=== PATIENT | female | born 1955 | race Caucasian/White ===

== ENCOUNTER → 2018-08-31 10:43 | Outpatient (CLI) | payer OTHER, SELFPAY ==
--- NOTE | 2018-08-31 | DI.RAD.S_ITS ---
PROCEDURE: XR SHOULDER RT MIN 2V INDICATIONS: PAIN IN RIGHT SHOULDER TECHNIQUE: 3 views of the shoulder were acquired. COMPARISON: None. FINDINGS: Bones: No fractures or dislocations. Degenerative changes of the right acromioclavicular joint. No suspicious bony lesions. Visualized ribs appear intact. Soft tissues: No suspicious soft tissue calcifications. IMPRESSION: Right shoulder without acute osseous abnormalities. Right acromioclavicular joint osteoarthrosis. Dictated by: Jc Mchugh M.D. on 08/31/2018 at 14:48 Approved by: Jc Mchugh M.D. on 08/31/2018 at 14:50
== END ==
PROVIDERS: Family Provider Physician Assistant; PCP Physician Assistant; Visit Provider Physician Assistant
DX: M25.511 Pain in right shoulder (principal); M19.011 Primary osteoarthritis, right shoulder
CPT/HCPCS: 73030

== ENCOUNTER → 2018-09-07 09:35 | Outpatient (CLI) | payer OTHER, SELFPAY | PROVIDERS: Family Provider Physician Assistant; PCP Physician Assistant; Visit Provider Physician Assistant | DX: M85.851 Other specified disorders of bone density and structure, right thigh (principal); Z78.0 Asymptomatic menopausal state; E07.9 Disorder of thyroid, unspecified; F17.200 Nicotine dependence, unspecified, uncomplicated; Z90.722 Acquired absence of ovaries, bilateral | CPT/HCPCS: 77080 ==

== ENCOUNTER 2019-05-22 11:28 | Emergency (ER) | payer OTHER, SELFPAY ==
[2019-05-22 11:38] VITALS: PULSE 70
[2019-05-22 11:40] VITALS: BP 142/77; PULSE 83; RESP 17; TEMP 37.3; O2SAT 99
--- NOTE | 2019-05-22 11:51 | ED_ITS ---
HPI - Extremity Injury (Upper) <MEMO Rosario - Last Filed: 05/22/19 19:02> General Chief Complaint: Extremity Injury, Upper Stated Complaint: left shoulder constant pain since 05/11 fall Time Seen by Provider: 05/22/19 11:31 Source: patient Mode of arrival: Ambulatory Limitations: no limitations History of Present Illness HPI narrative: This is a 63-year-old female, smoker, who presents to ED with left anterior shoulder pain radiating to left elbow and at times down to her wrist. She had taken a fall from a stool onto concrete floor on 05/11/2019 and landed on anterior aspect of left shoulder. She denies losing consciousness or on anticoagulant. She just lost her and was in process of taking care of funerals and etc. since the service is over patient is here for an evaluation with ongoing pain. Patient also reports improved nasal discomfort but denies difficulty breathing and has intact smell. Patient denies weakness, tingling on left hand. Patient reports pain increases with any movement such as forward elevation, abduction, adduction, internal or external rotation of affected arm. Right dominant hand. Patient reports had taken her 's oxycodone a couple of times for severe pain. No previous injury to left shoulder. Related Data Home Medications Medication Instructions Recorded Confirmed cholecalciferol (vitamin D3) 2,000 2,000 unit PO DAILY 11/12/18 05/22/19 unit capsule levothyroxine 125 mcg capsule 125 mcg PO DAILY 11/12/18 05/22/19 modafinil 200 mg tablet 200 mg PO DAILY 11/12/18 05/22/19 acetaminophen 1 dose PO PRN PRN 05/22/19 05/22/19 ibuprofen 1 dose PO PRN PRN 05/22/19 05/22/19 Allergies Allergy/AdvReac Type Severity Reaction Status Date / Time vitamin E (d-alpha Allergy Facial Verified 05/22/19 11:39 tocopherol) skin breakout Oral Steroids AdvReac Depression Uncoded 05/22/19 11:39 Review of Systems <MEMO Rosario - Last Filed: 05/22/19 19:02> Review of Systems Narrative: General: Denies fever, chills, fatigue, malaise, sweats. HEENT: Denies sinus pain, ear pain, sore throat, difficulty swallowing, dizziness. Respiratory: Denies dyspnea, cough, wheezing, hemoptysis, sputum. Cardiovascular: Denies chest pain, palpitations, orthopnea, edema. Gastrointestinal: Denies nausea, vomiting, abdominal pain, diarrhea, constipation, melena. : Denies dysuria, frequency, incontinence, hematuria, urinary retention. Musculoskeletal: See HPI Skin: Denies rash, skin lesions, or other. Neurologic: Denies weakness, headache, numbness, change in speech, confusion, seizures, incoordination. Psychiatric: See HPI 12-point review of systems is negative except for those stated above. Patient History <MEMO Rosario - Last Filed: 05/22/19 19:02> Surgical History H/O bilateral oophorectomy (Acute) Social History Smoking Status: Current every day smoker Social History Smoking Status: Current every day smoker alcohol intake frequency: 0-2 drinks per day Substance Use Type: does not use Exam <MEMO Rosario - Last Filed: 05/22/19 19:02> Narrative Exam Narrative: General appearance: well developed, well nourished, in no acute distress. Head: normocephalic, atraumatic, no scalp lesions, non-tender. Eye: pupil equal, round. EOMI. Nose: nares patent without active bleeding. Oral: mucosa moist. Neck/Thyroid: neck supple, full range of motion, no visible masses. Skin: no suspicious rashes, lesions over visible areas. Warm and dry. Heart: no clubbing, no cyanosis, no edema. Lungs: Breathing even and unlabored. No stridor. No accessory muscles used. Chest: normal shape and expansion. Abdomen: non-obese, non-distended. Neurologic: alert and oriented. 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 Psych: In tears while talking about her and memory of service. Initial Vital Signs Initial Vital Signs: Vital Signs Pulse Rate 70 05/22/19 11:38 Extrem General: normal to inspection Left upper extremity: shoulder/upper arm Details: inspection abnormal, axillary nerve sensory function normal and abnormal ROM Details: pain with active ROM, pain with passive ROM and with range as follows (less than 90 degree forward flexion, abduction; internal rotation and external rotation); no swelling, no ecchymosis, no deformity and no unsual warmth and hand Details: neurosensory e xam normal, tendon exam normal and vascular exam Details: radial pulse present and normal capillary refill <Fiorella Roland MD - Last Filed: 05/23/19 07:52> Initial Vital Signs Initial Vital Signs: Vital Signs Pulse Rate 70 05/22/19 11:38 Course <MEMO Rosario - Last Filed: 05/22/19 19:02> Orders Ordered: ED Orders 05/22/19 11:49 XR shoulder LT min 2V Stat Vital Signs Vital signs: Vital Signs - 8 hr 05/22/19 11:38 05/22/19 11:40 Temperature 99.1 F Pulse Rate 83 Pulse Rate [Left Radial] 70 Respiratory Rate 17 Blood Pressure [Right Arm] 142/77 H Pulse Oximetry 99 <Fiorella Roland MD - Last Filed: 05/23/19 07:52> Orders Ordered: ED Orders 05/22/19 11:49 XR shoulder LT min 2V Stat Vital Signs Vital signs: Vital Signs - 8 hr 05/22/19 11:38 05/22/19 11:40 Temperature 99.1 F Pulse Rate 83 Pulse Rate [Left Radial] 70 Respiratory Rate 17 Blood Pressure [Right Arm] 142/77 H Pulse Oximetry 99 MDM - Extremity Injury (Upper) <MEMO Rosario - Last Filed: 05/22/19 19:02> Differential Diagnosis Differential diagnosis: Likely other (strain of shoulder, shoulder pain) Medical Records Attestation: I reviewed the patient's medical records. Imaging Data XR-Shoulder L: Radiologist's impression: [address] [address] XRay Report Signed Patient: Yanique Olivares LMR#: [id number] : 8Acct:[id number] Age/Sex: 63 / FDate of Service: 05/22/19 Loc: ED Accession Number: [id number] Procedure: XR shoulder LT min 2V Ordering Provider: Davila-Oras,Ayaz [employer] TECHNICIAN PROCEDURE: XR SHOULDER LT MIN 2V INDICATIONS: L shoulder pain, fell on anterior shoulder 11 days ago TECHNIQUE: 3 views of the shoulder were acquired. COMPARISON: None. FINDINGS: Bones: No fractures or dislocations. No suspicious bony lesions. Visualized ribs appear intact. Mild acromioclavicular joint osteoarthritis. Soft tissues: No suspicious soft tissue calcifications. IMPRESSION: No fracture. No acute osseous lesion. If symptoms and/or clinical suspicion for pathology persists, further assessment with repeat radiographs (7-10 days) or advanced imaging (e.g. CT, MRI or bone scan) may be helpful. Dictated by: Stacia Tobin MD, PhD on 05/22/2019 at 11:58 Approved by: Stacia Tobin MD, PhD on 05/22/2019 at 12:00 [facility] Narrative Medical decision making narrative: This patient is 63-year-old female who presents to ED with left anterior shoulder pain radiating down to elbow and occasionally to the wrist after she taken a fall on affected shoulder 10 days ago. There is no neurological deficit on left hand with good radial pulse. Pain increases with any active range of motion on right arm. X-ray does not show any acute findings such as fracture or dislocation. We discussed about physical therapy and further imaging test if pain persists and patient agrees with treatment plan. Return precautions were discussed with the patient. Patient advised to take jgpy-pau-lbodwwn Tylenol and or Motrin for discomfort and oxycodone that she has at home for severe pain at nights. Discharge Plan Departure Patient Disposition: Home Clinical Impression: Acute shoulder pain Qualifiers: Laterality: left Qualified Code(s): M25.512 - Pain in left shoulder Discharge Date/Time: 05/22/19 13:27 Instructions: DI for Shoulder Pain Activity Restrictions/Additional Instructions: You have been diagnosed with [left shoulder pain. X-ray test today does not show any acute findings such as fracture or dislocation.]. What to do: *Take your medications as directed. Please take ixir-guj-taeaqmg Tylenol up to 4000 mg in 24 hour. You can take extra-strength Tylenol 2 tabs 4 times a day. Also you can add ibuprofen 400 mg to 600 mg 3 times a day with food. *Follow up with your primary care provider in 2-3 days, call for an appointment. Let them know you were seen in the ED and that we asked you to be seen in follow up. You may need a referral to physical therapy and advanced imaging tests if the pain persists. *Return to ED if you have any new, worsening, or concerning symptoms, such as [tingling, weakness, numbness, worsening pain, chest pain, breathing difficulty, unable to tolerate fluids, or any acute concerns]. Prescriptions: No Action acetaminophen 1 dose PO PRN PRN (Reason: shoulder pain) RF: 0 ibuprofen 1 dose PO PRN PRN (Reason: shoulder pain) RF: 0 modafinil 200 mg tablet 200 mg PO DAILY RF: 0 cholecalciferol (vitamin D3) 2,000 unit capsule 2,000 unit PO DAILY RF: 0 levothyroxine 125 mcg capsule 125 mcg PO DAILY RF: 0 Referrals: Emmy Carlos PA-C [Primary Care Provider] -
== END 2019-05-22 13:27 | disposition home or self-care (01) ==
PROVIDERS: Emergency Provider Nurse Practitioner Family; Family Provider Physician Assistant; PCP Physician Assistant
DX: M25.512 Pain in left shoulder (principal); W19.XXXA Unspecified fall, initial encounter
CPT/HCPCS: 73030; 99282; 99283

== ENCOUNTER 2019-05-24 15:17 | Emergency (ER) | payer OTHER, SELFPAY ==
[2019-05-24 15:29] VITALS: BP 163/78; PULSE 87; RESP 14; TEMP 37.2; O2SAT 97; BMI 26.6
--- NOTE | 2019-05-24 15:51 | ED.UPPEXIN ---
HPI - Extremity Injury (Upper) <MEMO Rosario - Last Filed: 05/24/19 23:07> General Chief Complaint: Extremity Injury, Upper Stated Complaint: odd sensations and tingling in left hand/ forearm Time Seen by Provider: 05/24/19 15:32 Source: patient Mode of arrival: Ambulatory Limitations: no limitations History of Present Illness HPI narrative: This is a 63-year-old female, smoker, who presents to ED with increasing hot and cold sensation on left arm. She was evaluated in ED 2 days ago with left shoulder pain after she sustained a fall at least 10 days prior visiting ER. Patient reports pain was manageable with hhyw-jtw-esybqff Tylenol and Motrin and occasional oxycodone. Reports has not followed up with her primary care physician. Patient contacted [facility] to make a follow-up appointment and was advised to re-evaluated in ED patient has not been sensation problems so she presents to ED today. Reports is able to move her fingers without difficulty. Related Data Home Medications Medication Instructions Recorded Confirmed cholecalciferol (vitamin D3) 2,000 2,000 unit PO DAILY 11/12/18 05/22/19 unit capsule levothyroxine 125 mcg capsule 125 mcg PO DAILY 11/12/18 05/22/19 modafinil 200 mg tablet 200 mg PO DAILY 11/12/18 05/22/19 acetaminophen 1 dose PO PRN PRN 05/22/19 05/22/19 ibuprofen 1 dose PO PRN PRN 05/22/19 05/22/19 Allergies Allergy/AdvReac Type Severity Reaction Status Date / Time vitamin E (d-alpha Allergy Facial Verified 05/24/19 15:29 tocopherol) skin breakout Oral Steroids AdvReac Depression Uncoded 05/22/19 11:39 Review of Systems <MEMO Rosario - Last Filed: 05/24/19 23:07> Review of Systems ROS Unobtainable: All systems reviewed & are unremarkable except as noted in HPI and below Patient History <MEMO Rosario - Last Filed: 05/24/19 23:07> Social History Smoking Status: Current every day smoker alcohol intake frequency: holidays/special occasions only Substance Use Type: does not use Exam <SKYLER RosarioP - Last Filed: 05/24/19 23:07> Narrative Exam Narrative: General appearance: well developed, well nourished, in no acute distress. Head: normocephalic, atraumatic, no scalp lesions, non-tender. Eye: pupil equal, round. EOMI. Nose: nares patent. Oral: mucosa moist. Neck/Thyroid: neck supple, full range of motion, no visible masses. Skin: no suspicious rashes, lesions over visible areas. Warm and dry. Heart: no clubbing, no cyanosis, no edema. Lungs: Breathing even and unlabored. No stridor. No accessory muscles used. Chest: normal shape and expansion. Abdomen: non-obese, non-distended. Neurologic: alert and oriented. 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 Psych: good eye contact, normal affect. Initial Vital Signs Initial Vital Signs: Vital Signs Temperature 98.9 F 05/24/19 15:29 Pulse Rate 87 05/24/19 15:29 Respiratory Rate 14 05/24/19 15:29 Blood Pressure 163/78 H 05/24/19 15:29 Pulse Oximetry 97 05/24/19 15:29 Extrem Left upper extremity: shoulder/upper arm Details: inspection abnormal, tenderness, axillary nerve sensory function normal and abnormal ROM Details: pain with passive ROM and with range as follows (Able to forward flex and abduct greater than 90 degree which has improved from previous visit 2 days ago.); no swelling, no crepitus, no deformity and no unsual warmth, elbow/forearm Details: normal to inspection and distal pulses intact; no tenderness, no swelling and ROM abnormal and hand Details: normal to inspection, normal capillary refill, neuromotor exam normal Details: wrist extension normal, thumb opposition normal, thumb IP flexion normal, thumb ADduction normal and fingers 2-5 ABduction normal, neurosensory exam normal (light touch sensation intact. Reports hot/icy cold sensation on ulnar and radial aspect of L arm from upper arm down to lower arm/fingers.), tendon exam normal, vascular exam Details: radial pulse present and normal capillary refill; not cool and no cyanosis and normal ROM of fingers <Monie Bautista DO - Last Filed: 05/25/19 08:06> Initial Vital Signs Initial Vital Signs: Vital Signs Temperature 98.9 F 05/24/19 15:29 Pulse Rate 87 05/24/19 15:29 Respiratory Rate 14 05/24/19 15:29 Blood Pressure 163/78 H 05/24/19 15:29 Pulse Oximetry 97 05/24/19 15:29 Course <MEMO Rosario - Last Filed: 05/24/19 23:07> Vital Signs Vital signs: Vital Signs - 8 hr 05/24/19 15:29 Temperature 98.9 F Pulse Rate 87 Respiratory Rate 14 Blood Pressure 163/78 H Pulse Oximetry 97 <Monie Bautista DO - Last Filed: 05/25/19 08:06> Vital Signs Vital signs: Vital Signs - 8 hr 05/24/19 15:29 Temperature 98.9 F Pulse Rate 87 Respiratory Rate 14 Blood Pressure 163/78 H Pulse Oximetry 97 MDM - Extremity Injury (Upper) <MEMO Rosario - Last Filed: 05/24/19 23:07> Differential Diagnosis Differential diagnosis: Likely other (Left shoulder pain) Medical Records Attestation: I reviewed the patient's medical records. [facility] Narrative Medical decision making narrative: This is 63-year-old female return to ED with left arm paresthesia. Patient was seen 2 days ago with left shoulder pain after she sustained a fall about 10 days prior to ED visit. X-ray test was done at that time with no acute findings such as dislocation, fracture. Patient active range of motion has improved since the visit. However, she has icy cold/hot sensation from left upper arm dating down to wrist/fingers on radial and ulna aspect. Bilateral hand/fingers strength are equal and light touch sensations were intact along radial pulses. Patient was able to move all fingers against resistance. The patient was assured her paresthesia is likely due to a shoulder injury and pain. Patient advised to follow up with her primary care physician to get a referral to physical therapist to rehabilitate left arm strength and shoulder mobility. Advised to follow up with [facility] orthopedist if pain and paresthesia persists. Patient verbalized the understanding and agrees with treatment plan at this time. Advised continue with current medication regimen. Discharge Plan Departure Patient Disposition: Home Clinical Impression: Paresthesia and pain of left extremity Discharge Date/Time: 05/24/19 16:01 Instructions: DI for Shoulder Pain Activity Restrictions/Additional Instructions: You have been diagnosed with [left shoulder pain/injury and paresthesia of from a fall. Deferred imaging test at this time. It appears to be you have paresthesia from shoulder injury on left arm. You do have good strength on both hands and arms. As we discussed, you may need physical therapy referral after re-evaluated by your primary care physician]. What to do: *Take your medications as directed. Please continue to take ibic-zwa-fulysvt Tylenol and or Motrin as needed for her discomfort. Motrin is good medications for decreasing inflammation as well since you declined prednisone due to side effects. *Follow up with your primary care provider in 2-3 days, call for an appointment. Let them know you were seen in the ED and that we asked you to be seen in follow up. *Return to ED if you have any new, worsening, or concerning symptoms, such as [worsening symptoms such as pain, weakness, increasing numbness, chest pain, breathing difficulty, or any acute concerns]. Prescriptions: No Action acetaminophen 1 dose PO PRN PRN (Reason: shoulder pain) RF: 0 ibuprofen 1 dose PO PRN PRN (Reason: shoulder pain) RF: 0 modafinil 200 mg tablet 200 mg PO DAILY RF: 0 cholecalciferol (vitamin D3) 2,000 unit capsule 2,000 unit PO DAILY RF: 0 levothyroxine 125 mcg capsule 125 mcg PO DAILY RF: 0 Referrals: [facility] [Provider Group] Emmy Carlos PA-C [Primary Care Provider] -
== END 2019-05-24 16:01 | disposition home or self-care (01) ==
PROVIDERS: Emergency Provider Nurse Practitioner Family; Family Provider Physician Assistant; PCP Physician Assistant
DX: M79.602 Pain in left arm (principal); R20.2 Paresthesia of skin
CPT/HCPCS: 99282

== ENCOUNTER → 2019-06-04 15:57 | Outpatient (ROUT) | payer OTHER, SELFPAY ==
[2019-06-04 16:43] LABS: TSH w/ Reflex to FT4 2.36 uIU/mL (0.47-4.68)
== END ==
PROVIDERS: Family Provider Physician Assistant; PCP Physician Assistant; Visit Provider Physician Assistant
DX: E03.9 Hypothyroidism, unspecified (principal)
CPT/HCPCS: 84443

== ENCOUNTER → 2019-06-10 16:58 | Outpatient (CLI) | payer OTHER, SELFPAY ==
--- NOTE | 2019-06-10 17:01 | DI.MRI.S_ITS ---
PROCEDURE: MR SHOULDER LT WO CON INDICATIONS: PAIN LEFT SHOULDER TECHNIQUE: Noncontrast oblique coronal T2 fast spin echo with fat saturation, oblique sagittal T1 spin echo and T2 fast spin echo with fat saturation, axial T1 spin echo and T2 fast spin echo with fat saturation through the shoulder. COMPARISON: None. FINDINGS: Image quality: Excellent. Rotator cuff: There is tendinosis and moderate grade articular and bursal surface partial thickness tear involving distal supraspinatus and infraspinatus at the insertion humeral head extending to the musculotendinous junction. Distal subscapularis tendinosis is also seen. Sagittal images demonstrate mild to moderate supraspinatus muscle atrophy. Bones and bursae: No bone marrow contusions or fractures. The moderate acromioclavicular joint and glenohumeral joint osteoarthritic changes are seen. Moderate amount of fluid within subacromial subdeltoid bursa and glenohumeral joint is seen, no gross intra-articular loose body. Capsule and soft tissues: In the absence of intra-articular contrast, there is suggestion of focal superior anterior labral tear at 12 to 1:00 position. The glenohumeral ligaments appear intact. The long head of the biceps tendon demonstrates normal location and morphology. The rotator interval appears normal, without fibrosis. The coracohumeral ligament is normal in thickness. IMPRESSION: 1. Tendinosis and moderate grade articular and bursal surface partial thickness tear involving distal supraspinatus and infraspinatus extending to musculotendinous junction. Distal subscapularis tendinosis. Mild to moderate supraspinatus muscle atrophy. 2. Moderate acromioclavicular joint and glenohumeral joint osteoarthritis and small to moderate amount of joint effusion and subacromial subdeltoid bursal fluid. No gross intra-articular loose body. 3. Finding is concerning for focal superior anterior labral tear at 12 to 1:00 position. Dictated by: Nima Laura M.D. on 06/11/2019 at 9:41 Approved by: Nima Laura M.D. on 06/11/2019 at 9:52
== END ==
PROVIDERS: Family Provider Physician Assistant; PCP Physician Assistant; Visit Provider Physician Assistant
DX: M25.512 Pain in left shoulder (principal); M75.112 Incomplete rotator cuff tear or rupture of left shoulder, not specified as traumatic; M19.012 Primary osteoarthritis, left shoulder; M25.412 Effusion, left shoulder; M62.512 Muscle wasting and atrophy, not elsewhere classified, left shoulder
CPT/HCPCS: 73221

== ENCOUNTER → 2019-08-29 15:55 | Outpatient (ROUT) | payer OTHER, SELFPAY ==
[2019-08-29 16:02] LABS: Add Manual Diff / Slide Review NO; Basophils Absolute Auto 100 /uL (0-100); Basophils Percent Auto 0.7 % (0-2); Eosinophils Absolute Auto 200 /uL (0-450); Eosinophils Percent Auto 2.4 % (2-4); Hematocrit 40.9 % (36-46); Hemoglobin 13.8 g/dL (12.0-16.0); Lymphocytes Absolute Auto 1500 /uL (1100-4500); Mean Corpuscular HGB Conc 33.8 % (30-36); Mean Corpuscular Hemoglobin 32.2 PG (26-34); Mean Corpuscular Volume 95.4 fL (80-100); Monocytes Absolute Auto 400 /uL (0-900); Monocytes Percent Auto 6.3 % (3-14); Neutrophils Absolute Auto 4900 /uL (1500-7000); Neutrophils Percent Auto 69.6 % (50-75); Platelet Count 302 X10^3/uL (150-400); Red Blood Cell Count 4.29 X10^6/uL (4.0-5.2); Red Cell Distribution Width 13.9 % (11.6-14.8); White Blood Cell Count 7.1 X10^3/uL (4.5-11.0)
[2019-08-29 16:12] LABS: Alanine Aminotransferase 48 IU/L (<35); Albumin 4.1 g/dL (3.5-5.0); Albumin Globulin Ratio 1.5 (1.0-2.8); Alkaline Phosphatase 89 U/L (38-126); Amylase 58 U/L (30-110); Aspartate Aminotransferase 38 IU/L (14-36); BUN Creatinine Ratio 21.7 (6-22); Bilirubin Total 0.4 mg/dL (0.2-1.3); Blood Urea Nitrogen 13 mg/dL (7-17); Calcium 9.3 mg/dL (8.4-10.2); Carbon Dioxide 28 mmol/L (22-32); Chloride 100 mmol/L (98-107); Cholesterol 245 mg/dL (140-199); Estimated Glomerular Filt Rate > 60.0 mL/min (>60); Globulin 2.7 g/dL (1.7-4.1); Glucose 119 mg/dL (80-110); HDL Cholesterol 74 mg/dL (40-60); HEMOLYSIS < 15 (0-50); LDL Cholesterol Calculated 154 mg/dL (<100); Lipase 81 U/L (23-300); Potassium 3.9 mmol/L (3.4-5.1); Sodium 136 mmol/L (137-145); Total Protein 6.8 g/dL (6.3-8.2); Triglycerides 83 mg/dL (35-150)
[2019-08-29 16:41] LABS: TSH w/ Reflex to FT4 1.04 uIU/mL (0.47-4.68)
== END ==
PROVIDERS: Family Provider Physician Assistant; PCP Physician Assistant; Visit Provider Physician Assistant
DX: E03.9 Hypothyroidism, unspecified (principal); E78.5 Hyperlipidemia, unspecified; E55.9 Vitamin D deficiency, unspecified
CPT/HCPCS: 80053; 80061; 82150; 83690; 84443; 85025

== ENCOUNTER → 2019-09-02 11:12 | Outpatient (CLI) | payer OTHER, SELFPAY ==
--- NOTE | 2019-09-02 | DI.CT.S_ITS ---
PROCEDURE: CT ABDOMEN PELVIS W CON INDICATIONS: GENERALIZED ABDOMINAL PAIN/ABNORMAL LABS TECHNIQUE: After the administration of oral and intravenous contrast, 5 mm thick sections acquired from the diaphragms to the symphysis. 5 mm thick coronal and sagittal reformats were performed. For radiation dose reduction, the following was used: automated exposure control, adjustment of mA and/or kV according to patient size. COMPARISON: None. FINDINGS: Image quality: Excellent. ABDOMEN: Lung bases: Lung bases are clear. Heart size is normal. Solid organs: Liver is normal in size and enhancement. Diffuse fatty liver infiltration is noted. Gallbladder wall does not demonstrate thickening. Biliary system is non-dilated. Pancreas enhances normally. Spleen is normal in size and enhancement. No adrenal nodules. Kidneys are normal in size and enhancement, without hydronephrosis. Peritoneum and bowel: Pfpc-py-igqlhqbu generalized thickening can be seen involving the distal colon, beginning at the level of the splenic flexure and continuing to the sigmoid colon. Minimal surrounding inflammatory changes are seen. No other areas of bowel wall thickening can be seen. No free air or significant free fluid can be seen. Incidental note is made of a normal-appearing appendix. Nodes and vessels: No retroperitoneal or mesenteric adenopathy. Aorta and inferior vena cava are normal in caliber. Miscellaneous: No ventral hernias. PELVIS: Genitourinary: Bladder wall thickness is normal. Miscellaneous: No inguinal hernias or adenopathy. Bones: No suspicious bony lesions. No vertebral body compression fractures. Degenerative changes are seen, which are most prominent involving distal colon lower lumbar spine. Mild levoconvex scoliotic curvature is noted. IMPRESSION: Distal colitis. Please correlate with potential infectious inflammatory causes. Ischemia is possible, yet considered to be less likely. No findings of perforation or abscess can be seen. Incidental note is made of: Fatty liver infiltration Lower lumbar spine degenerative change Dictated by: Gavin Cummins M.D. on 09/02/2019 at 14:15 Approved by: Gavin Cummins M.D. on 09/02/2019 at 14:18
== END ==
PROVIDERS: PCP Physician Assistant; Visit Provider Physician Assistant
DX: R10.84 Generalized abdominal pain (principal); R11.0 Nausea; K76.0 Fatty (change of) liver, not elsewhere classified; K52.9 Noninfective gastroenteritis and colitis, unspecified; M47.816 Spondylosis without myelopathy or radiculopathy, lumbar region
CPT/HCPCS: 74177; Q9967

== ENCOUNTER → 2019-09-16 15:26 | Outpatient (ROUT) | payer OTHER, SELFPAY ==
[2019-09-16 16:50] LABS: Alanine Aminotransferase 41 IU/L (<35); Albumin 4.3 g/dL (3.5-5.0); Albumin Globulin Ratio 1.6 (1.0-2.8); Alkaline Phosphatase 83 U/L (38-126); Aspartate Aminotransferase 36 IU/L (14-36); BUN Creatinine Ratio 23.3 (6-22); Bilirubin Total 0.5 mg/dL (0.2-1.3); Bilirubin Unconjugated 0.4 mg/dL (0.0-1.1); Blood Urea Nitrogen 14 mg/dL (7-17); Calcium 9.2 mg/dL (8.4-10.2); Carbon Dioxide 29 mmol/L (22-32); Chloride 104 mmol/L (98-107); Estimated Glomerular Filt Rate > 60.0 mL/min (>60); Globulin 2.7 g/dL (1.7-4.1); Glucose 98 mg/dL (80-110); HEMOLYSIS < 15 (0-50); Potassium 4.1 mmol/L (3.4-5.1); Sodium 140 mmol/L (137-145)
== END ==
PROVIDERS: PCP Physician Assistant; Visit Provider Physician Assistant
DX: K76.0 Fatty (change of) liver, not elsewhere classified (principal); K52.9 Noninfective gastroenteritis and colitis, unspecified; E78.5 Hyperlipidemia, unspecified
CPT/HCPCS: 80053; 80076

== ENCOUNTER → 2020-02-24 12:11 | Outpatient (CLI) | payer OTHER, SELFPAY ==
--- NOTE | 2020-02-24 | DI.RAD.S_ITS ---
PROCEDURE: XR CERVICAL SPINE 4V OR 5V INDICATIONS: cervicalgia TECHNIQUE: 5 views of the cervical spine acquired. COMPARISON: None. FINDINGS: Bones: No fractures or dislocations to the T1 level. There is moderately severe degenerative disc disease and facet osteoarthritis from C4 through C6-7, with anterior and posterior projecting osteophytes from the adjacent endplates likely resulting in [id number] spinal stenosis. Additionally, the oblique views show facet osteoarthritis projecting to narrow the neural foramen at C3-4 through C 5-C6. Soft tissues: No prevertebral soft tissue swelling. IMPRESSION: Significant spinal and foraminal stenosis is present from C 3 inferiorly, with relative sparing of the C7-T1 level. No trauma found. Both spinal and foraminal stenosis likely is present in this patient. Dictated by: Jhony Castillo M.D. on 02/24/2020 at 14:45 Approved by: Jhony Castillo M.D. on 02/24/2020 at 14:47
[2020-02-24 13:28] LABS: Add Manual Diff / Slide Review NO; Basophils Absolute Auto 100 /uL (0-100); Basophils Percent Auto 1.1 % (0-2); Eosinophils Absolute Auto 200 /uL (0-450); Eosinophils Percent Auto 2.1 % (2-4); Hemoglobin 13.9 g/dL (12.0-16.0); Lymphocytes Absolute Auto 1700 /uL (1100-4500); Lymphocytes Percent Auto 21.4 % (25-40); Mean Corpuscular HGB Conc 33.1 % (30-36); Mean Corpuscular Hemoglobin 31.7 PG (26-34); Mean Corpuscular Volume 95.8 fL (80-100); Monocytes Absolute Auto 500 /uL (0-900); Monocytes Percent Auto 6.8 % (3-14); Neutrophils Absolute Auto 5300 /uL (1500-7000); Neutrophils Percent Auto 68.6 % (50-75); Platelet Count 284 X10^3/uL (150-400); Red Blood Cell Count 4.38 X10^6/uL (4.0-5.2); Red Cell Distribution Width 13.8 % (11.6-14.8); White Blood Cell Count 7.8 X10^3/uL (4.5-11.0)
[2020-02-24 13:59] LABS: Erythrocyte Sedimentation Rate 4 MM/HR (0-20)
[2020-02-24 14:19] LABS: Alanine Aminotransferase 64 IU/L (<35); Albumin 4.5 g/dL (3.5-5.0); Alkaline Phosphatase 101 U/L (38-126); Aspartate Aminotransferase 44 IU/L (14-36); BUN Creatinine Ratio 20.9 (6-22); Bilirubin Total 0.5 mg/dL (0.2-1.3); Blood Urea Nitrogen 14 mg/dL (7-17); C-Reactive Protein Quant 0.8 mg/dL (<1.0); Calcium 9.6 mg/dL (8.4-10.2); Carbon Dioxide 29 mmol/L (22-32); Chloride 99 mmol/L (98-107); Cholesterol 244 mg/dL (140-199); Estimated Glomerular Filt Rate > 60.0 mL/min (>60); Globulin 2.3 g/dL (1.7-4.1); Glucose 99 mg/dL (80-110); HDL Cholesterol 90 mg/dL (40-60); HEMOLYSIS < 15 (0-50); LDL Cholesterol Calculated 136 mg/dL (<100); Potassium 4.3 mmol/L (3.4-5.1); Sodium 135 mmol/L (137-145); Total Protein 6.8 g/dL (6.3-8.2); Triglycerides 89 mg/dL (35-150)
[2020-02-24 14:44] LABS: TSH w/ Reflex to FT4 1.38 uIU/mL (0.47-4.68)
[2020-02-24 15:24] LABS: Vitamin D 25 Hydroxy (D3) 38.4 ng/mL (30.0-100.0)
[2020-02-26 14:08] LABS: ANA Screen, IFA Negative (.)
== END ==
PROVIDERS: PCP Physician Assistant; Referring Provider Physician Assistant; Visit Provider Physician Assistant
DX: E03.9 Hypothyroidism, unspecified (principal); R63.4 Abnormal weight loss; E78.5 Hyperlipidemia, unspecified; M54.2 Cervicalgia; R20.0 Anesthesia of skin; M13.0 Polyarthritis, unspecified; E55.9 Vitamin D deficiency, unspecified; R53.1 Weakness
CPT/HCPCS: 36415; 72050; 80053; 80061; 82306; 84443; 85025; 85651; 86038; 86140

== ENCOUNTER → 2020-03-02 06:41 | Outpatient (CLI) | payer OTHER, SELFPAY ==
--- NOTE | 2020-03-02 | DI.MRI.S_ITS ---
PROCEDURE: MR CERVICAL SPINE WO CON INDICATIONS: Spinal stenosis, cervical region TECHNIQUE: Noncontrast sagittal T1 spin echo and T2 fast spin echo, sagittal STIR, foraminal oblique sagittal T2 fast spin echo, and axial gradient echo or T2 fast spin echo through the cervical spine. COMPARISON: None. FINDINGS: Image quality: Excellent. Alignment and Curvature: There is straightening of normal lumbar lordosis. Minimal anterolisthesis of C4 on C5 is noted. Bone Marrow: There is no marrow edema. No acute compression fracture. Degenerative endplate changes are noted at C4-5, C5-6 and C6-7 levels. Spinal Cord: Visualized spinal cord has normal size and signal. No cerebellar tonsillar herniation. Paraspinous Soft Tissues: No paravertebral masses. Prevertebral soft tissues are normal in thickness. C2-C3: There is mild central disc bulge with mild effacement of thecal sac anteriorly, no significant neural foraminal narrowing. C3-C4: There is central to left-sided disc bulge with mild central canal stenosis and narrowing of the left neural foramen. C4-C5: Decreased intervertebral disc space and bilateral facet hypertrophic changes are noted. Broad-based, more left-sided disc bulge is seen causing moderate central canal stenosis and moderate to severe left-sided neural foraminal narrowing and mild right-sided neural foraminal narrowing. There is likely compression of exiting left C5 nerve root. C5-C6: There is decreased intervertebral disc space and bilateral facet hypertrophic changes. Broad-based, more left-sided disc bulge is noted causing severe central canal stenosis and severe left-sided neural foraminal narrowing. Moderate right-sided neural foraminal narrowing is also seen. There is likely compression of bilateral exiting C6 nerve root and descending left C7 nerve root. C6-C7: Broad-based, more left-sided disc bulge and superimposed central disc herniation is seen with bilateral facet hypertrophic changes. There is moderate central canal stenosis and left worse than right bilateral neural foraminal narrowing. There is likely compression of exiting left C7 nerve root. C7-T1: Normal appearance. IMPRESSION: 1. Degenerative disc bulge and bilateral facet hypertrophic changes throughout cervical spine causing moderate to severe central canal stenosis and left worse than right bilateral neural foraminal narrowing most prominent at C5-6 level as above. 2. No marrow edema. No acute compression fracture. Minimal anterolisthesis of C4 on C5. 3. No abnormal cervical spinal cord signal. Dictated by: Nima Laura M.D. on 03/02/2020 at 8:53 Approved by: Nima Laura M.D. on 03/02/2020 at 8:58
== END ==
PROVIDERS: PCP Physician Assistant; Referring Provider Physician Assistant; Visit Provider Physician Assistant
DX: M48.02 Spinal stenosis, cervical region (principal); M50.31 Other cervical disc degeneration, high cervical region
CPT/HCPCS: 72141

== ENCOUNTER → 2020-03-23 08:49 | Outpatient (CLI) | payer OTHER, SELFPAY ==
[2020-03-23 09:35] LABS: Add Manual Diff / Slide Review NO; Basophils Absolute Auto 100 /uL (0-100); Basophils Percent Auto 1.1 % (0-2); Eosinophils Absolute Auto 100 /uL (0-450); Eosinophils Percent Auto 1.8 % (2-4); Hematocrit 41.7 % (36-46); Hemoglobin 13.7 g/dL (12.0-16.0); Lymphocytes Absolute Auto 1600 /uL (1100-4500); Lymphocytes Percent Auto 20.3 % (25-40); Mean Corpuscular HGB Conc 32.9 % (30-36); Mean Corpuscular Hemoglobin 31.8 PG (26-34); Mean Corpuscular Volume 96.7 fL (80-100); Monocytes Absolute Auto 600 /uL (0-900); Monocytes Percent Auto 7.6 % (3-14); Neutrophils Absolute Auto 5500 /uL (1500-7000); Neutrophils Percent Auto 69.2 % (50-75); Platelet Count 285 X10^3/uL (150-400); Red Blood Cell Count 4.31 X10^6/uL (4.0-5.2); White Blood Cell Count 7.9 X10^3/uL (4.5-11.0)
[2020-03-23 09:52] LABS: BUN Creatinine Ratio 36.7 (6-22); Blood Urea Nitrogen 22 mg/dL (7-17); Calcium 8.9 mg/dL (8.4-10.2); Carbon Dioxide 30 mmol/L (22-32); Chloride 103 mmol/L (98-107); Estimated Glomerular Filt Rate > 60.0 mL/min (>60); Glucose 114 mg/dL (80-110); HEMOLYSIS < 15 (0-50); Potassium 4.4 mmol/L (3.4-5.1); Sodium 138 mmol/L (137-145)
== END ==
PROVIDERS: PCP Physician Assistant; Referring Provider Physician Assistant; Visit Provider Neurological Surgery
DX: M48.02 Spinal stenosis, cervical region (principal); M54.12 Radiculopathy, cervical region
CPT/HCPCS: 36415; 80048; 85025; 93005; 93010

== ENCOUNTER 2020-08-15 14:22 | Emergency (ER) | payer OTHER, SELFPAY ==
[2020-08-15 14:30] VITALS: BP 134/87; PULSE 112; RESP 14; TEMP 36.9; O2SAT 98; BMI 26.6
--- NOTE | 2020-08-16 08:24 | ED.ALLEREA ---
HPI - Allergic Reaction General Chief complaint: Allergic Reaction Stated complaint: Reaction To Steroids Source: patient Mode of arrival: Ambulatory Limitations: no limitations Related Data Home Medications Medication Instructions Recorded Confirmed cholecalciferol (vitamin D3) 50 2,000 unit PO DAILY 11/12/18 05/22/19 mcg (2,000 unit) capsule levothyroxine 125 mcg capsule 125 mcg PO DAILY 11/12/18 05/22/19 modafinil 200 mg tablet 200 mg PO DAILY 11/12/18 05/22/19 acetaminophen 1 dose PO PRN PRN 05/22/19 05/22/19 ibuprofen 1 dose PO PRN PRN 05/22/19 05/22/19 Allergies Allergy/AdvReac Type Severity Reaction Status Date / Time vitamin E (d-alpha Allergy Facial Verified 08/15/20 14:30 tocopherol) skin breakout Oral Steroids AdvReac Depression Uncoded 05/22/19 11:39 Patient History Surgical History H/O bilateral oophorectomy Social History Smoking Status: Current every day smoker Smoking Status: Current every day smoker alcohol intake frequency: holidays/special occasions only Substance Use Type: does not use Exam Initial Vital Signs Initial Vital Signs: Vital Signs Temperature 98.5 F 08/15/20 14:30 Pulse Rate 112 H 08/15/20 14:30 Respiratory Rate 14 08/15/20 14:30 Blood Pressure 134/87 08/15/20 14:30 Pulse Oximetry 98 08/15/20 14:30 Discharge Plan Departure Patient Disposition: Left Against Medical Advice Clinical Impression: Patient left without being seen Prescriptions: No Action acetaminophen 1 dose PO PRN PRN (Reason: shoulder pain) RF: 0 ibuprofen 1 dose PO PRN PRN (Reason: shoulder pain) RF: 0 modafinil 200 mg tablet 200 mg PO DAILY RF: 0 cholecalciferol (vitamin D3) 2,000 unit capsule 2,000 unit PO DAILY RF: 0 levothyroxine 125 mcg capsule 125 mcg PO DAILY RF: 0 Stand Alone Forms: Against Medical Advice
== END 2020-08-15 16:32 | disposition left against medical advice (07) ==
PROVIDERS: Emergency Provider Emergency Medicine; PCP Physician Assistant
CPT/HCPCS: 99281

== ENCOUNTER → 2020-12-25 15:04 | Outpatient (ROUT) | payer OTHER, SELFPAY ==
[2020-12-25 15:13] LABS: Add Manual Diff / Slide Review NO; Basophils Absolute Auto 100 /uL (0-100); Basophils Percent Auto 0.6 % (0-2); Eosinophils Absolute Auto 200 /uL (0-450); Eosinophils Percent Auto 2.3 % (2-4); Hematocrit 42.2 % (36-46); Lymphocytes Absolute Auto 2000 /uL (1100-4500); Lymphocytes Percent Auto 21.7 % (25-40); Mean Corpuscular HGB Conc 33.1 % (30-36); Mean Corpuscular Hemoglobin 32.4 PG (26-34); Monocytes Absolute Auto 700 /uL (0-900); Monocytes Percent Auto 7.3 % (3-14); Neutrophils Absolute Auto 6300 /uL (1500-7000); Neutrophils Percent Auto 68.1 % (50-75); Platelet Count 294 X10^3/uL (150-400); Red Blood Cell Count 4.31 X10^6/uL (4.0-5.2); Red Cell Distribution Width 13.2 % (11.6-14.8); White Blood Cell Count 9.2 X10^3/uL (4.5-11.0)
[2020-12-25 15:22] LABS: Alanine Aminotransferase 41 IU/L (<35); Albumin 4.2 g/dL (3.5-5.0); Albumin Globulin Ratio 1.6 (1.0-2.8); Alkaline Phosphatase 82 U/L (38-126); Aspartate Aminotransferase 32 IU/L (14-36); Bilirubin Total 0.4 mg/dL (0.2-1.3); Blood Urea Nitrogen 12 mg/dL (7-17); Calcium 9.3 mg/dL (8.4-10.2); Carbon Dioxide 24 mmol/L (22-32); Chloride 102 mmol/L (98-107); Cholesterol 218 mg/dL (140-199); Estimated Glomerular Filt Rate > 60.0 mL/min (>60); Globulin 2.6 g/dL (1.7-4.1); Glucose 90 mg/dL (80-110); HDL Cholesterol 66 mg/dL (40-60); HEMOLYSIS < 15 (0-50); LDL Cholesterol Calculated 130 mg/dL (<100); Potassium 3.9 mmol/L (3.4-5.1); Sodium 135 mmol/L (137-145); Total Protein 6.8 g/dL (6.3-8.2); Triglycerides 108 mg/dL (35-150)
[2020-12-25 15:51] LABS: TSH w/ Reflex to FT4 5.28 uIU/mL (0.47-4.68)
[2020-12-25 16:01] LABS: Vitamin D 25 Hydroxy (D3) 37.2 ng/mL (30.0-100.0)
[2020-12-25 16:30] LABS: Free T4, Direct Thyroxine 1.74 ng/dL (0.78-2.19)
== END ==
PROVIDERS: PCP Physician Assistant; Visit Provider Physician Assistant
DX: Z00.00 Encounter for general adult medical examination without abnormal findings (principal); E03.9 Hypothyroidism, unspecified; E78.5 Hyperlipidemia, unspecified; M85.9 Disorder of bone density and structure, unspecified
CPT/HCPCS: 80053; 80061; 82306; 84439; 84443; 85025

== ENCOUNTER 2021-01-20 15:34 | Emergency (ER) | payer OTHER, SELFPAY ==
[2021-01-20 15:42] VITALS: BP 137/72; PULSE 104; RESP 15; TEMP 37.1; O2SAT 96; BMI 26.6
--- NOTE | 2021-01-20 16:06 | ED_ITS ---
HPI - Wound/Laceration General Chief Complaint: Wound/Laceration Stated Complaint: cut left hand Time Seen by Provider: 01/20/21 16:00 Source: patient Mode of arrival: Ambulatory Limitations: no limitations History of Present Illness HPI narrative: 65-year-old female daily smoker with history of hypothyroid presents with a chief complaint of an accidental laceration to the palm of her left hand when she dropped a margin trimmer and cut her hand. She states it was not on and the laceration happened due to her reaching out. She has no numbness tingling or weakness. Tetanus will need to be updated. No other injury Place: outdoors Patient tetanus UTD: No Context: accidental Associated symptoms: pain Treatments prior to arrival: bandage Related Data Home Medications Medication Instructions Recorded Confirmed cholecalciferol (vitamin D3) 50 2,000 unit PO DAILY 11/12/18 05/22/19 mcg (2,000 unit) capsule levothyroxine 125 mcg capsule 125 mcg PO DAILY 11/12/18 05/22/19 modafinil 200 mg tablet 200 mg PO DAILY 11/12/18 05/22/19 acetaminophen 1 dose PO PRN PRN 05/22/19 05/22/19 ibuprofen 1 dose PO PRN PRN 05/22/19 05/22/19 Previous Rx's Medication Instructions Recorded cephalexin 500 mg PO Q6H 7 Days #28 cap 01/20/21 Allergies Allergy/AdvReac Type Severity Reaction Status Date / Time vitamin E (d-alpha Allergy Facial Verified 01/20/21 15:46 tocopherol) skin breakout Oral Steroids AdvReac Depression Uncoded 05/22/19 11:39 Review of Systems Constitutional Constitutional: Denies chills, Denies fatigue, Denies fever(s), Denies frequent falls, Denies lethargy and Denies weakness Eyes Eyes: Denies change in vision, Denies eye discharge, Denies irritation and Denies loss of vision ENT Ears, Nose, Mouth, and Throat: Denies change in voice, Denies dizziness, Denies neck pain, Denies sore throat and Denies throat swelling Cardiovascular Cardiovascular: Denies chest pain, Denies irregular heart rhythm, Denies lightheadedness, Denies palpitations, Denies dyspnea, Denies dyspnea on exertion and Denies orthopnea Respiratory Respiratory: Denies cough, Denies dyspnea, Denies dyspnea on exertion and Denies wheezing Gastrointestinal Gastrointestinal: Denies abdominal pain, Denies change in bowel habits, Denies diarrhea, Denies nausea and Denies vomiting Musculoskeletal Musculoskeletal: Denies neck pain and Denies numbness Integumentary/Breasts Skin/Breast: Denies pruritus, Denies erythema, Denies rash and Reports wounds Neurologic Neurologic: Denies behavioral changes, Denies confusion, Denies dizziness, Denies frequent falls, Denies loss of vision, Denies numbness and Denies weakness Psychiatric Psychiatric: Denies anxiety, Denies behavioral changes, Denies confusion, Denies depression, Denies homicidal ideation and Denies suicidal ideation Endocrine Endocrine: Denies fatigue, Denies flushing and Denies palpitations Hematologic/Lymphatic Hematologic/Lymphatic: Denies easy bruising Allergic/Immunologic Allergic/Immunologic: Denies urticaria, Denies throat swelling and Denies wheezing Patient History Surgical History H/O bilateral oophorectomy Social History Smoking Status: Current every day smoker Smoking Status: Current every day smoker alcohol intake frequency: 0-2 drinks per day Substance Use Type: does not use Exam Narrative Exam Narrative: GEN: AOx3 and in mild distress EYES: Pupils are equal, round, and reactive to light and accommodation. Extraoccular muscles are intact bilaterally. There is no subconjunctival hemorrhage or exudate. CHEST: Lungs are clear to auscultation bilaterally and free of wheezes, rales, or rhonchi. Heart rate is regular rhythm, there are no murmurs, clicks, rubs, or gallops. There is no chest wall tenderness. ABD: Abdomen is soft and nontender. There is no guarding or rebound. Bowel sounds are normal in all 4 quadrants. There is no mass or organomegaly. EXT: Full painless ROM of all extremities with no loss of sensation or strength. SKIN: 3 cm irregular flap wound to the palmar surface of patient's left hand overlying the hypothenar eminence. No active bleeding, no foreign body noted and no underlying deep structures have been violated Warm, pink, and dry. No erythema or rash Initial Vital Signs Initial Vital Signs: Vital Signs Temperature 98.7 F 01/20/21 15:42 Pulse Rate 104 H 01/20/21 15:42 Respiratory Rate 15 01/20/21 15:42 Blood Pressure 137/72 01/20/21 15:42 Pulse Oximetry 96 01/20/21 15:42 Procedures Laceration Repair Laceration 1: Site: hand Side (If applicable): left Size (cm): 3 Description: flap Depth: simple, single layer Local Anesthetic: lidocaine 1% and with bicarb Amount of anesthesia used (mL): 4 Pre-repair: wound explored, irrigated extensively and deep structures intact Skin layer closed with: nylon Size (cm): 4-0 Course Orders Ordered: Discontinued Medications Diphtheria/Tetanus/Acell Pertussis (Tet,Diph,Pertuss(Acell),Vac/Pf 0.5 Ml Syringe) 0.5 ml IM .ONCE ONE Stop: 01/20/21 15:53 Last Admin: 01/20/21 16:11 Dose: 0.5 ml Documented by: TYREE Lidocaine/Sodium Bicarbonate (Lido 1%/Sod Bicarb 8.4% (10ml) 10 Ml Syringe) 10 ml INJ NOW ONE Stop: 01/20/21 16:07 Last Admin: 01/20/21 16:11 Dose: 10 ml Documented by: TYREE Vital Signs Vital signs: Vital Signs - 8 hr 01/20/21 15:42 01/20/21 17:28 Temperature 98.7 F Pulse Rate 104 H 77 Respiratory Rate 15 Blood Pressure 137/72 146/71 H Pulse Oximetry 96 96 Discharge Plan Departure Patient Disposition: Home Clinical Impression: Laceration Laceration of hand Qualifiers: Encounter type: initial encounter Foreign body presence: without foreign body Laterality: left Qualified Code(s): S61.412A - Laceration without foreign body of left hand, initial encounter Instructions: DI for Laceration Repair Activity Restrictions/Additional Instructions: *You have been diagnosed with [left hand laceration] *What to do: *Please continue to take your regular medications as directed. [x ] New medication prescriptions sent to your pharmacy: [[facility] [place] ] [ ] New medication written as a paper prescription [ ] No new medications given Please keep the wound clean and dry to the best of your ability. Please monitor for signs of infection such as redness to the skin or increasing pain. Have the sutures removed by your doctor in about 7 days. If you are unable to get into your doctor, we would be happy to remove the sutures in that same timeframe. Prescriptions: New cephalexin 500 mg capsule 500 mg PO Q6H 7 Days Qty: 28 RF: 0 No Action acetaminophen 1 dose PO PRN PRN (Reason: shoulder pain) RF: 0 ibuprofen 1 dose PO PRN PRN (Reason: shoulder pain) RF: 0 modafinil 200 mg tablet 200 mg PO DAILY RF: 0 cholecalciferol (vitamin D3) 2,000 unit capsule 2,000 unit PO DAILY RF: 0 levothyroxine 125 mcg capsule 125 mcg PO DAILY RF: 0 Referrals: Emmy Carlos PA-C [Primary Care Provider] -
[2021-01-20] MEDS: TET,DIPH,PERTUSS(ACELL),VAC/PF 0.5 ML SYRINGE IM (16:11)
[2021-01-20] MEDS: LIDO 1%/SOD BICARB 8.4% (10ML) 10 ML SYRINGE INJ (16:11)
[2021-01-20 17:28] VITALS: BP 146/71; PULSE 77; O2SAT 96
== END 2021-01-20 17:29 | disposition home or self-care (01) ==
PROVIDERS: Emergency Provider Emergency Medicine; PCP Physician Assistant
DX: S61.412A Laceration without foreign body of left hand, initial encounter (principal); W27.8XXA Contact with other nonpowered hand tool, initial encounter; Z23 Encounter for immunization
CPT/HCPCS: 12002; 90471; 99283; 90715

== ENCOUNTER → 2021-06-21 09:34 | Outpatient (CLI) | payer OTHER, SELFPAY ==
--- NOTE | 2021-06-21 | DI.MRI.S_ITS ---
PROCEDURE: MR CERVICAL SPINE WO CON INDICATIONS: Radiculopathy, cervical region TECHNIQUE: Noncontrast sagittal T1 spin echo and T2 fast spin echo, sagittal STIR, foraminal oblique sagittal T2 fast spin echo, and axial gradient echo or T2 fast spin echo through the cervical spine. COMPARISON: [facility], MR, MR CERVICAL SPINE WO CON, 03/02/2020, 7:06. [facility], CR, XR CERVICAL SPINE 4V OR 5V, 02/24/2020, 11:29. FINDINGS: Image quality: There is artifact associated with the metallic hardware. Alignment and Curvature: There is straightening of the normal cervical lordosis. No focal AP alignment abnormality is seen. Mild motion artifact can be seen. Bone Marrow: Marrow demonstrates normal overall signal. Spinal Cord: Visualized spinal cord has normal size and signal. No cerebellar tonsillar herniation. Paraspinous Soft Tissues: No paravertebral masses. Prevertebral soft tissues are normal in thickness. Postoperative changes have taken place since the last MRI examination, with anterior fixation hardware C4 through C7. Disc spacers are seen. C2-C3: The disc height is well-preserved. Loss of disc signal is seen at this level. A mild degree of generalized disc osteophyte complex is seen. Moderate facet joint hypertrophy is seen. Mild bilateral neural foraminal narrowing can be seen. Mild central canal narrowing is seen. When comparison is made with the prior images, these findings are similar. C3-C4: The disc height is well-preserved. Loss of disc signal is seen at this level. Moderate generalized disc osteophyte complex is seen. There is a mild central disc osteophyte protrusion present. There is moderate to prominent right-sided and moderate left-sided facet hypertrophy seen. There is moderate to severe right-sided and at least moderate left-sided neural foraminal narrowing seen. These imaging findings have progressed compared to the prior study. C4-C5: [id number] disc osteophyte complex is seen. There is moderate right-sided and mild left-sided facet hypertrophy seen. There is moderate right-sided and mild left-sided neural foraminal narrowing seen. No significant central canal narrowing is seen. This level is clearly improved compared to the preoperative MRI. C5-C6: [id number] disc osteophyte complex is seen. Mild to moderate facet hypertrophy is seen. Mild to moderate bilateral neural foraminal narrowing can be seen. No significant central canal narrowing is seen. This level is clearly improved compared to the preoperative MRI examination. C6-C7: Gxcu-[id number] disc osteophyte complex is seen. Mild to moderate facet hypertrophy is seen. Moderate bilateral neural foraminal narrowing is seen. No significant central canal narrowing is seen. This level is clearly improved compared to the prior. C7-T1: The disc height is well-preserved. Loss of disc signal is seen at this level. Moderate disc osteophyte complex is seen, which is eccentric to the left. There is a mild central disc osteophyte protrusion seen. Mild to moderate facet hypertrophy is seen. There is [id number]-[id number] right-sided and mild left-sided neural foraminal narrowing seen. Mild to moderate central canal narrowing is seen. The degenerative changes at this level. Slightly progressed compared to the prior. IMPRESSION: Interval postoperative change with hardware seen anteriorly C4 through C7. Throughout the fused region, the degrees of narrowing are clearly a improved. Mild interval progression of degenerative change can be seen at C3-C4 and C7-T1. Dictated by: Gavin Cummins M.D. on 06/21/2021 at 10:22 Approved by: Gavin Cummins M.D. on 06/21/2021 at 10:28
== END ==
PROVIDERS: PCP Physician Assistant; Referring Provider Neurological Surgery; Visit Provider Neurological Surgery
DX: M47.22 Other spondylosis with radiculopathy, cervical region (principal); M47.23 Other spondylosis with radiculopathy, cervicothoracic region; Z98.1 Arthrodesis status
CPT/HCPCS: 72141